=== PATIENT | male | born 1995 | race Caucasian/White ===

== ENCOUNTER → 2016-09-11 | Outpatient (REF) ==
--- NOTE | 2016-09-11 10:43 | Diagnostic Imaging Report ---
INDICATION: Preemployment physical examination. 09/11/2016 COMPARISON: None. EXAMINATION: PA and lateral films were obtained. FINDINGS: The cardiac silhouette, mediastinal configuration, and pulmonary vascularity are within normal limits. No significant pleural, lung parenchymal or osseous lesion is identified. IMPRESSION: 1. No significant chest x-ray abnormality is identified. Dictated by: Dictated on workstation # [id number]
--- NOTE | 2016-09-11 10:48 | Diagnostic Imaging Report ---
INDICATION: Preemployment assessment. Three views. AVAILABLE COMPARISONS: None FINDINGS: Spina bifida occulta at L5 is present, a normal variant. Sacroiliac joints are normal. Vertebral body alignment is normal. The intervertebral disc spaces are unremarkable. No visible spondylolysis is present. No osteolytic or osteoblastic lesion is identified. IMPRESSION: 1. No significant abnormality is identified. Dictated by: Dictated on workstation # [id number]
== END ==
LOC: RAD 10:10
PROVIDERS: ATTEND Nurse Practitioner Family
DX: Z02.1 Encounter for pre-employment examination (principal)
CPT/HCPCS: 71020; 72100